=== PATIENT | male | born 1955 | race Caucasian/White ===

== ENCOUNTER 2016-06-05 06:20 | Day surgery (SDC) | payer OTHER ==
[2016-06-03 11:24] VITALS: BMI 26.6
[2016-06-05] MEDS ORDERED: BUPIVACAINE HCL/PF 2.5 MG/ML - 30 ML VIAL IJ ONE (07:12)
[2016-06-05] MEDS ORDERED: EPINEPHrine 1:1,000 1 MG/1 ML - 30ML VIAL (INJECTION) ONE (07:12)
[2016-06-05] MEDS ORDERED: PROPOFOL 20 ML ONE ×2 (07:27)
[2016-06-05] MEDS ORDERED: BUPIVACAINE HCL/PF 0.25% (2.5MG/ML) 10 ML VIAL IJ ONE (08:30)
[2016-06-05] MEDS ORDERED: LACTATED RINGERS SOLUTION 1,000 ML IV SCH (09:00)
[2016-06-05] MEDS ORDERED: oxyCODONE HCL 5 MG TABLET PO PRN (09:09)
[2016-06-05 09:50] VITALS: TEMP 98.2
[2016-06-05 10:50] VITALS: BP 121/74; PULSE 71
--- NOTE | 2016-06-09 14:25 | OP ---
DATE OF OPERATION: 06/05/2016 Done at [facility]. SURGEON: Joesph Flanagan MD BRICK GRADER: , MAYELIN PREOPERATIVE DIAGNOSES: 1. Left knee medial and lateral meniscal tear. 2. Left knee cartilage injury. 3. Left knee synovitis. PREOPERATIVE DIAGNOSES: 1. Left knee medial and lateral meniscal tear. 2. Left knee cartilage injury. 3. Left knee synovitis. PROCEDURE: 1. Left knee arthroscopy with partial meniscectomy, medial and lateral meniscus. 2. Left knee arthroscopy with chondroplasty and abrasion-plasty. 3. Left knee arthroscopy with synovectomy/major. CPT Codes: 50464, 46999, 62995 FINDINGS: 1. Medial meniscus body and posterior horn tear. 2. Lateral meniscus posterior horn tear. 3. Synovitis patellofemoral and mediolateral notch area. 4. Anterior grade 1-2 cartilage changesmedial femoral condyle. 5. ACL and PCL intact. 6. Mild grade 1 __cartilage changes___ lateral joint line. 7. anterior grade 4_cartilage injury with surrounding grade 2 changes patellofemoral trochlea and patellofemoral joint. PROCEDURE: Informed consent was obtained. The patient was taken to the operating room where the left lower extremity was prepped and draped in a sterile fashion. A tourniquet was placed on the left upper thigh but not inflated. Using standard arthroscopic technique, a lateral incision and portal were made which allowed for introduction of the camera into the suprapatellar bursa. This was then taken to the medial joint line where under direct visualization, a medial incision and portal were made. Excessive synovium noted in the medial, lateral, patellofemoral and notch area was removed by the up-biting shaver and Bovie cautery. This was found to bring inflammatory tissue into the joint surface, a source of joint pain and dysfunction. Probing of the medial and lateral meniscus found tears described in the findings. These were removed with an up-biting shaver and taken back to a stable rim. Grade 2-3 degenerative changes were treated with chondroplasty, removing all flaking surfaces with low setting Bovie used along the periphery. Grade 4 changes were treated with abrasion-plasty. All areas of the knee were once again re-examined. The knee was then drained. A single suture was placed on all portals. Sterile dressing was placed. The patient was transferred to the recovery room. Natasha [id number] MTDD
--- NOTE | 2016-06-09 16:19 | PATH ---
Surgical Pathology Report Patient Name: NEL SHEARER [facility]. Rec. #: [id number] /Age/Gender: 1955 (Age: 60) / F Account: [id number] Location: [facility] AMBULATORY Taken: 06/05/2016 Received: 06/05/2016 Reported: 06/09/2016 Physicians: Joesph Flanagan M.D. Specimen(s) Received LEFT KNEE SHAVINGS Clinical History Left knee derangement Final Diagnosis KNEE, LEFT, ARTHROSCOPIC SHAVINGS: FIBROSYNOVIAL AND FIBROCOLLAGENOUS TISSUE. Electronically Signed Kate Alarcon M.D. Gross Description Received in formalin, labeled "left knee shavings," is a 4.0 x 3.3 x 0.4 cm. aggregate of wong-yellow soft tissue fragments. A fundraising sale representative portion is submitted in one cassette. /06/05/2016 saudi/06/05/2016
== END 2016-06-05 10:30 | disposition home or self-care (01) ==
LOC: FASU 06:20 → EDSEX 07:30 → FASU 10:30
PROVIDERS: ATTEND Orthopaedic Surgery
PROC: 0SBD4ZZ Excision of Left Knee Joint, Percutaneous Endoscopic Approach (ICD-10-PCS; 2016-06-05)
PROC: 0SBD4ZZ Excision of Left Knee Joint, Percutaneous Endoscopic Approach (ICD-10-PCS; 2016-06-05)
PROC: 0SBD4ZZ Excision of Left Knee Joint, Percutaneous Endoscopic Approach (ICD-10-PCS; principal; 2016-06-05 07:30)
DX: S83.242A Other tear of medial meniscus, current injury, left knee, initial encounter (principal); S83.282A Other tear of lateral meniscus, current injury, left knee, initial encounter; S83.8X2A Sprain of other specified parts of left knee, initial encounter; M65.862 Other synovitis and tenosynovitis, left lower leg; X58.XXXA Exposure to other specified factors, initial encounter; Y93.9 Activity, unspecified; Y92.9 Unspecified place or not applicable
CPT/HCPCS: 88304-TC; 94760